=== PATIENT | female | born 1950 | race Caucasian/White ===

== ENCOUNTER → 2017-04-21 | Outpatient (CLI) | payer MEDICARE, OTHER | LOC: MC.RAD 15:35 | DX: Z12.31 Encounter for screening mammogram for malignant neoplasm of breast (principal) ==

== ENCOUNTER → 2018-04-27 | Outpatient (CLI) | payer MEDICARE, OTHER | LOC: MC.RAD 13:28 | DX: Z12.31 Encounter for screening mammogram for malignant neoplasm of breast (principal) ==

== ENCOUNTER → 2019-05-17 | Outpatient (CLI) | payer MEDICARE, OTHER | LOC: MC.RAD 15:38 | DX: Z12.31 Encounter for screening mammogram for malignant neoplasm of breast (principal) ==

== ENCOUNTER 2022-04-21 07:54 | Day surgery (SDC) | payer MEDICARE, OTHER ==
[~2022-04-21] VITALS: Ht 157.5 cm; Wt 56.4 kg
[2022-04-21 08:28] VITALS: BP 91/62; PULSE 88; TEMP 98.3
[2022-04-21] MEDS ORDERED: ZOCOR 10MG10 MG PO (08:46)
[2022-04-21] MEDS ORDERED: ASPIRIN 81M81 MG/TA2 PO (08:46)
[2022-04-21] MEDS ORDERED: DOXYCYCLINE 50M50 MG PO (08:47)
[2022-04-21] MEDS ORDERED: FLONASEALLERGY NS (08:48)
[2022-04-21] MEDS ORDERED: EPA FISH OIL1 SGL PO (08:48)
[2022-04-21] MEDS ORDERED: CLARITIN 1010 MG/TAB PO (08:49)
[2022-04-21] MEDS ORDERED: SOOLANTRA TOP (08:49)
[2022-04-21] MEDS ORDERED: MASON NATURAL2000 IU PO (08:50)
[2022-04-21] MEDS ORDERED: MULTI VITAMINS1 TAB PO (08:50)
--- NOTE | 2022-04-21 09:17 | NUR ---
Initial visit; Patient and her thanked Certified [employer] for offering prayer and encouragement prior to patient's procedure.
[2022-04-21 09:50] VITALS: BP 101/57; PULSE 83; TEMP 97.6
[2022-04-21 10:05] VITALS: BP 113/53; PULSE 76
== END 2022-04-21 10:20 | disposition home or self-care (01) ==
LOC: SDCO 07:54
DX: Z12.11 Encounter for screening for malignant neoplasm of colon (principal); Z80.0 Family history of malignant neoplasm of digestive organs
CPT/HCPCS: J2704; J7120

== ENCOUNTER 2024-04-18 10:01 | Outpatient (CLI) | payer MEDICARE, OTHER ==
[~2024-04-18] VITALS: Ht 157.5 cm; Wt 57.6 kg
[~2024-04-18 10:01] MED LIST: ASPIRIN 81M81 MG/TA2 PO; CLARITIN 1010 MG/TAB PO; DOXYCYCLINE 50M50 MG PO; EPA FISH OIL1 SGL PO; FLONASEALLERGY NS; MASON NATURAL2000 IU PO; MULTI VITAMINS1 TAB PO; SOOLANTRA TOP; ZOCOR 10MG10 MG PO
[2024-04-18] MEDS ORDERED: Denosumab 60 MG/ML SYRINGE SQ ONE (10:30)
[2024-04-18] MEDS ORDERED: OSCAL 500 TAB500 MG PO (10:47)
[2024-04-18] MEDS ORDERED: TEMOVATE0.05% TP (10:49)
[2024-04-18 10:50] VITALS: BP 130/71; PULSE 86; TEMP 98.2
== END 2024-04-18 10:52 ==
LOC: EUO 10:01
DX: M81.0 Age-related osteoporosis without current pathological fracture (principal)
CPT/HCPCS: J0897